=== PATIENT | female | born 1960 | race Caucasian/White ===

== ENCOUNTER 2016-10-10 07:10 | Day surgery (SDC) | payer OTHER ==
[~2016-10-10] VITALS: Ht 165.1 cm; Wt 59.4 kg
[~2016-10-10 07:10] MED LIST: 0.9% Sodium Chloride 1,000 ML IV SCH; CALC600T12 PO; CHOL400T30 PO; FEXO-123 PO; FISH1CAP15 PO; MULT-1018 PO; Sodium Chloride LOK Flush 10 mL Syringe IV PRN; fentaNYL-PF 50 mCg/mL 2 mL Inj IVPUSH PRN
[2016-10-10 07:39] VITALS: BP 132/70; PULSE 57; RESP 14; O2SAT 100
[2016-10-10 08:16] VITALS: BP 93/48; PULSE 70; RESP 14; O2SAT 97
[2016-10-10 08:26] VITALS: BP 105/64; PULSE 70; RESP 16; O2SAT 100
[2016-10-10 08:36] VITALS: BP 103/69; PULSE 60; RESP 16; O2SAT 100
--- NOTE | 2016-10-10 08:54 | ENDO ---
[address] [address] ENDOSCOPY PROCEDURE PATIENT: FREDDIE RIVERA : 1960 MR#: [id number] ADMIT: 10/10/2016 JOB ID: [id number] DATE OF SURGERY: 10/10/2016 TITLE OF OPERATION: Colonoscopy. PREOPERATIVE DIAGNOSIS(ES): Family history of colon cancer. POSTOPERATIVE DIAGNOSIS(ES): Small internal hemorrhoids. ANESTHESIA: 1. Fentanyl 125 mcg. 2. Versed 7 mg IV administered. COMPLICATIONS: None. BLOOD LOSS: Minimal. DESCRIPTION OF PROCEDURE: After risks and benefits had been explained to the patient, informed consent was obtained. After anesthesia administered, a colonoscope was inserted from the rectum to the cecum. Mucosa was carefully examined. Prep of the patient was excellent. After procedure was done, the scope withdrawn and procedure terminated. FINDINGS: Upon inspection of the anus, no masses, hemorrhoids, ulcers, fissures that were seen throughout the entire examination. There are no polyps, masses or lesions. Retroflexion showed small internal hemorrhoids. IMPRESSION: Small internal hemorrhoids. RECOMMENDATIONS: 1. Stool softener as needed. 2. Repeat colonoscopy in five years given family history of colon cancer.
== END 2016-10-10 23:59 | disposition home or self-care (01) ==
LOC: END 07:10
PROVIDERS: ATTEND Internal Medicine Gastroenterology
DX: Z12.11 Encounter for screening for malignant neoplasm of colon (principal); Z80.0 Family history of malignant neoplasm of digestive organs; K64.8 Other hemorrhoids; E78.5 Hyperlipidemia, unspecified; M85.80 Other specified disorders of bone density and structure, unspecified site
CPT/HCPCS: G0105; G0500; J2250; J3010; J7030